=== PATIENT | male | born 1965 | race Two or more races ===

== ENCOUNTER 2017-10-29 02:16 | Emergency (ER) | payer OTHER ==
[~2017-10-29] VITALS: Ht 175.3 cm; Wt 136.1 kg
[2017-10-29] MEDS ORDERED: ALBUTEROL2.5 MG/3 M INH (02:22)
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
[2017-10-29 02:57] VITALS: BP 155/88
== END 2017-10-29 02:57 ==
LOC: EDBD 02:16 → EMR 02:32
DX: R06.00 Dyspnea, unspecified (principal); F10.129 Alcohol abuse with intoxication, unspecified; M54.9 Dorsalgia, unspecified; V43.52XA Car driver injured in collision with other type car in traffic accident, initial encounter; Y92.89 Other specified places as the place of occurrence of the external cause; E11.9 Type 2 diabetes mellitus without complications; J45.909 Unspecified asthma, uncomplicated
CPT/HCPCS: 99283